=== PATIENT | male | born 1945 | race Caucasian/White ===

== ENCOUNTER → 2017-06-21 | Day surgery (SDC) | payer OTHER ==
[~2017-06-21] MED LIST: Dextrose 5%-0.45% NaCl 1,000 ML IV SCH; Midazolam 1 MG/ML 2 ML SDV IV ONE; Midazolam 1 MG/ML 2 ML SDV ONE; Sodium Chloride 0.9% 10 ML Syringe FLUSH PRN; fentaNYL 100 MCG/2 ML SDV IV ONE; fentaNYL 100 MCG/2 ML SDV ONE
--- NOTE | 2017-06-21 09:51 | OR ---
DATE: 06/21/2017 PROCEDURES: Esophagogastroduodenoscopy and multiple pinch biopsies. INSTRUMENT USED: GIF-H180 Olympus video panendoscope. PREMEDICATIONS: No oral topical anesthesia used. Fentanyl 100 mcg intravenous, Versed 2 mg intravenous. Nasal O2 cannula. The procedure was done under pulse oximetry, BP recording, and tool worker. INDICATION: The patient with longstanding heartburn and regurgitation unexplained and not responsive to medical measures, on long-term aspirin. DESCRIPTION OF PROCEDURE: Esophagogastroduodenoscopy is performed for detection of any active erosive lesions. Castillo esophagus and/or malignancy also under consideration. H. pylori status to be determined, endoscopic hemostasis therapy if needed. The scope was passed with ease. Adequate visualization of the esophagus was made from proximal to distal areas. No upper esophageal lesions identified. No distal esophageal stricture. No uphill or downhill esophageal varices. No Alessia-Prado tear. Grade D changes were noted by Switchback criteria. No esophageal polyp or tumor mass identified. Sliding hiatal hernia was noted. No proximal gastric varices noted. Gastric fundus examination by retroflexion showed no polypoid lesions. No gastric ulcer, malignant mass, or vascular ectasia identified. Duodenal bulb showed no ulcer. Visualized second part of the duodenum was unremarkable. Multiple pinch biopsies were taken from the gastric antrum and proximal body and sent for PyloriTek test for H. pylori, and if negative in an hour, the tissue is to be sent for histopathology. No bleeding was noted from any of the visualized areas at the completion of examination. IMPRESSION: 1. Sliding hiatal hernia. 2. Grade D gastroesophageal reflux disease. The patient tolerated the procedure well. [facility] /[id number]
[2017-06-21 11:12] VITALS: BP 115/61
--- NOTE | 2017-06-21 13:33 | LETTER ---
06/21/2017 Candida Joel, TAMAR [address] [place] [address] RE: AMRIK HILL : 1945 Dear Ms. Joel: Mr. Amrik Hill had esophagogastroduodenoscopy done this morning and he tolerated the procedure well. I herewith send a copy of the endoscopy note and photographs for your review. He was put on omeprazole 20 mg p.o. daily at a.m. He requires a followup EGD after 2 months of therapy for verification of total healing of ulcer and rule out Castillo esophagus and/or malignancy. His most recent colonoscopic examination here was in 2006. He does require approval from [place] to proceed with a screening colonoscopy here. Thank you. Sincerely, [facility] /[id number]
== END | disposition home or self-care (01) ==
LOC: DL.ENDO 06:48
PROVIDERS: ATTEND Internal Medicine Gastroenterology
DX: K44.9 Diaphragmatic hernia without obstruction or gangrene (principal); K21.9 Gastro-esophageal reflux disease without esophagitis; E66.9 Obesity, unspecified; I25.10 Atherosclerotic heart disease of native coronary artery without angina pectoris; E78.00 Pure hypercholesterolemia, unspecified; N40.0 Benign prostatic hyperplasia without lower urinary tract symptoms; Z87.891 Personal history of nicotine dependence
CPT/HCPCS: 43239; 87077; J2250; J3010; J7042; 88305

== ENCOUNTER 2017-07-26 05:17 | Day surgery (SDC) | payer OTHER ==
[2017-07-26] MEDS ORDERED: Midazolam 1 MG/ML 2 ML SDV IV ONE ×6 (05:18→06:47)
[2017-07-26] MEDS ORDERED: fentaNYL 100 MCG/2 ML SDV IV ONE ×3 (05:18→06:34)
[2017-07-26] MEDS ORDERED: Dextrose 5%-0.45% NaCl 1,000 ML IV SCH (06:00)
[2017-07-26] MEDS ORDERED: Sodium Chloride 0.9% 10 ML Syringe FLUSH PRN (06:00)
[2017-07-26] MEDS ORDERED: fentaNYL 100 MCG/2 ML SDV ONE (06:12)
[2017-07-26] MEDS ORDERED: Midazolam 1 MG/ML 2 ML SDV ONE (06:12)
--- NOTE | 2017-07-26 08:34 | OR ---
DATE: 07/26/2017 PROCEDURES PERFORMED: Total colonoscopy and multiple cold snare polypectomies. INSTRUMENT USED: CF-H180AL Olympus videocolonoscope. PREMEDICATIONS: Fentanyl 100 mcg intravenous and Versed 3.5 mg intravenous. Nasal 2 L O2 cannula. The procedure was done under pulse oximetry, BP recording, and security monitor. INDICATION: The patient with previous colonic polyps. Surveillance colonoscopic examination is done for detection of any polypoid lesions and removal, endoscopic hemostasis therapy if needed. DESCRIPTION OF PROCEDURE: Initial rectal exam was unremarkable. Rigid anoscopy was normal. The colonoscope was passed with ease. Numerous scattered diverticula were noted in the distal left colon along with some deformity. In the distal descending colon, a 5 mm sized benign-appearing pedunculated polyp was noted, photograph was taken, cold snare polypectomy was done, the tissue was retrieved and sent for histopathology. Another 3 mm sized benign-appearing polyp was noted in the distal descending colon, cold snare polypectomy was done, the tissue was retrieved and sent for histopathology. The scope was passed with ease up to the ileocecal area, photographs were taken of the normal-appearing cecum identified by landmarks of appendiceal orifice and double-bulged ileocecal folds. No bleeding was noted from any of the visualized areas at the commencement of the examination. No stricture. No vascular ectasia. No large isolated ulcerations seen. No evidence of diffuse inflammatory bowel disease in the form of friability, contact bleeding, or ulcerations. Probing the proximal sides of folds and flexures, using adequate distention and clearing of the stool material, withdrawal of the scope was made, cecum to rectum time over 6 minutes. No bleeding was noted from any of the visualized areas at the completion of examination. IMPRESSION: 1. Diverticulosis. 2. Multiple colonic polyps. The patient tolerated the procedure well. [facility] /[id number]
--- NOTE | 2017-07-26 08:51 | LETTER ---
07/26/2017 Candida Joel, TAMAR [address] [place] [address] RE: AMRIK HILL : 1945 Dear Ms. Joel: Mr. Amrik Hill had colonoscopic examination done today and he tolerated the procedure well. I herewith send a copy of the endoscopy note and photographs for your review. Thank you. Sincerely, [facility] /[id number]
[2017-07-26 10:45] VITALS: BP 126/68
== END 2017-07-26 09:35 | disposition home or self-care (01) ==
LOC: DL.ENDO 05:17
PROVIDERS: ATTEND Internal Medicine Gastroenterology
DX: Z12.11 Encounter for screening for malignant neoplasm of colon (principal); D12.4 Benign neoplasm of descending colon; K63.5 Polyp of colon; K57.30 Diverticulosis of large intestine without perforation or abscess without bleeding; E66.09 Other obesity due to excess calories; I25.10 Atherosclerotic heart disease of native coronary artery without angina pectoris; E78.00 Pure hypercholesterolemia, unspecified; N40.0 Benign prostatic hyperplasia without lower urinary tract symptoms; Z86.010 Personal history of colon polyps; Z87.891 Personal history of nicotine dependence
CPT/HCPCS: 45385; J2250; J3010; J7042

== ENCOUNTER 2017-08-30 05:48 | Day surgery (SDC) | payer OTHER ==
[2017-08-30] MEDS ORDERED: fentaNYL 100 MCG/2 ML SDV IV ONE ×3 (05:49→07:09)
[2017-08-30] MEDS ORDERED: Midazolam 1 MG/ML 2 ML SDV IV ONE ×3 (05:49→07:09)
[2017-08-30] MEDS ORDERED: Sodium Chloride 0.9% 10 ML Syringe FLUSH PRN (06:00)
[2017-08-30] MEDS ORDERED: fentaNYL 100 MCG/2 ML SDV ONE (06:09)
[2017-08-30] MEDS ORDERED: Midazolam 1 MG/ML 2 ML SDV ONE (06:09)
[2017-08-30] MEDS ORDERED: Dextrose 5%-0.45% NaCl 1,000 ML IV SCH (07:00)
--- NOTE | 2017-08-30 09:21 | OR ---
DATE: 08/30/2017 PROCEDURES: Esophagogastroduodenoscopy, multiple pinch biopsies, and brush biopsy for cytology. INSTRUMENT USED: GIF-H180 Olympus video panendoscope. PREMEDICATIONS: No oral topical anesthesia used. Fentanyl 100 mcg intravenous, Versed 2 mg intravenous. The procedure was done under pulse oximetry, BP recording, and administrative fellow. INDICATION: The patient with previous grade D GERD, treated with PPI. Followup esophagogastroduodenoscopy is performed for verification of total healing of esophageal ulcer and rule out malignancy. Biopsies for Castillo esophagus indicated, endoscopic hemostasis therapy if needed. DESCRIPTION OF PROCEDURE: The scope was passed with ease. Adequate visualization of the esophagus was made from proximal to distal areas. No upper esophageal lesions identified. No distal esophageal stricture. No uphill or downhill esophageal varices. No Alessia-Prado tear. Grade D erosive changes were noted by Garrard criteria. Distal esophageal benign-appearing ulcer was noted. Photographs were taken. Multiple pinch biopsies, four in number, were taken from different areas of the ulcer. [place] biopsy was also taken for cytology. No esophageal polyp or tumor mass identified. No uphill or downhill esophageal varices. Sliding hiatal hernia was noted. Four-quadrant biopsies were taken from the pink columnar epithelium at around 36 cm distal to the oral verge and sent for any histopathologic evidence of intestinal metaplasia. No proximal gastric varices noted. Gastric fundus examination by retroflexion showed no polypoid lesions. No gastric ulcer, malignant mass, or vascular ectasia identified. Duodenal bulb showed no ulcer. Visualized second part of the duodenum was unremarkable. No bleeding was noted from any of the visualized areas at the completion of examination. Photographs were taken of the distal esophagus. IMPRESSION: Sliding hiatal hernia, grade D gastroesophageal reflux disease. The patient tolerated the procedure well. [facility] /[id number]
[2017-08-30 11:33] VITALS: BP 111/74
--- NOTE | 2017-08-30 14:10 | LETTER ---
08/30/2017 Candida Joel, [address] [place] [address] RE: DEMI HILL : 1945 Dear Ms. Joel: Mr. Demi Hill had esophagogastroduodenoscopy done this morning and he tolerated the procedure well. He has been recommended to increase omeprazole to 20 mg p.o. b.i.d. Thank you. Sincerely, [facility] /[id number]
== END 2017-08-30 09:27 | disposition home or self-care (01) ==
LOC: DL.ENDO 05:48
PROVIDERS: ATTEND Internal Medicine Gastroenterology
DX: K21.9 Gastro-esophageal reflux disease without esophagitis (principal); K22.10 Ulcer of esophagus without bleeding; K44.9 Diaphragmatic hernia without obstruction or gangrene
CPT/HCPCS: 43239; J2250; J3010; J7042

== ENCOUNTER 2019-04-12 14:37 | Emergency (ER) | payer OTHER ==
--- NOTE | 2019-04-12 15:03 | EDM.PDOC ---
<Domo Jean - Last Filed: 04/12/19 15:14> ED HPI GENERAL MEDICAL PROBLEM - General Chief Complaint: Laceration Stated Complaint: CUT FINGER Time Seen by Provider: 04/12/19 14:50 Source of Information: Reports: Patient, RN, RN Notes Reviewed History Limitations: Reports: No Limitations - History of Present Illness INITIAL COMMENTS - FREE TEXT/NARRATIVE: Patient was at home changing towels out of the bathroom and was trimming some loose ends on the towels with a scissors and cut his right index finger. He held pressure on the wound for 15 minutes but could not get the bleeding to stop. He presented to the ED for wound assessment and closure. Finger laceration is roughly 1 cm long. Onset: Today Location: Reports: Upper Extremity, Right (right index finger) Quality: Reports: Ache Severity: Mild Improves with: Reports: None Worsens with: Reports: None Associated Symptoms: Reports: No Other Symptoms - Related Data Allergies Allergy/AdvReac Type Severity Reaction Status Date / Time No Known Allergies Allergy Verified 01/31/18 07:12 Home Meds: Home Meds Budesonide/Formoterol [Symbicort 160-4.5 MCG] 1 puff IN BID 06/19/15 [History] Nitroglycerin [Nitrostat] 1 tab PO ASDIRECTED 06/19/15 [History] Simvastatin [Zocor] 40 mg PO BEDTIME 06/19/15 [History] Ascorbic Acid [Vitamin C] 500 mg PO DAILY 06/18/17 [History] Aspirin/Calcium Carbonate/Mag [Aspirin Buffered] 325 mg PO DAILY 06/18/17 [ History] Calcium Carbonate [Tums Extra Strength] 750 mg PO DAILY 06/18/17 [History] Cholecalciferol (Vitamin D3) [Vitamin D3] 2,000 units PO DAILY 06/18/17 [History ] Finasteride 5 mg PO BEDTIME 06/18/17 [History] Tamsulosin [Flomax] 0.4 mg PO BEDTIME 06/18/17 [History] Tiotropium [place] [Spiriva Respimat] 1 puff INH DAILY 06/18/17 [History] Albuterol [Proventil HFA] 1 puff INH ASDIRECTED PRN 06/21/17 [History] Omeprazole 20 mg PO DAILY 07/23/17 [History] Terazosin [Hytrin] 5 mg PO BEDTIME 07/23/17 [History] Past Medical History HEENT History: Reports: Impaired Vision Other HEENT History: wears glasses. esophageal ulcer Cardiovascular History: Reports: CAD, High Cholesterol Respiratory History: Reports: COPD, Other (See Below) Other Respiratory History: Pulmonary emphysema. Hx of right pneumothorax Gastrointestinal History: Reports: Colon Polyp, GERD, Hiatal Hernia, PUD Genitourinary History: Reports: BPH Other Genitourinary History: enlagred prostates, overactive bladder Musculoskeletal History: Reports: Arthritis Neurological History: Reports: None Psychiatric History: Reports: Other (See Below) Other Psychiatric History: S/P TOBACCO HABITUATION Endocrine/Metabolic History: Reports: Obesity/BMI 30+, Vitamin D Deficiency Hematologic History: Reports: None Immunologic History: Reports: None Oncologic (Cancer) History: Reports: None Dermatologic History: Reports: None - Infectious Disease History Infectious Disease History: Reports: Chicken Pox, Measles - Past Surgical History Head Surgeries/Procedures: Reports: None HEENT Surgical History: Reports: None Cardiovascular Surgical History: Reports: Coronary Artery Stent Respiratory Surgical History: Reports: Other (See Below) Other Respiratory Surgeries/Procedures: CHEST TUBE GI Surgical History: Reports: Colonoscopy, EGD, Polypectomy Male Surgical History: Reports: None Endocrine Surgical History: Reports: None Neurological Surgical History: Reports: None Musculoskeletal Surgical History: Reports: None Oncologic Surgical History: Reports: None Dermatological Surgical History: Reports: None Social & Family History - Family History Family Medical History: Noncontributory - Caffeine Use Caffeine Use: Reports: Coffee, Soda Other Caffeine Use: AVERAGE OF 1 POT OF COFFEE DAILY - Living Situation & Occupation Living situation: Reports: , with Spouse Occupation: Retired ED ROS GENERAL - Review of Systems Review Of Systems: See Below Constitutional: Reports: No Symptoms Musculoskeletal: Reports: No Symptoms Skin: Reports: Wound (right index finger laceration) Neurological: Reports: No Symptoms Psychiatric: Reports: No Symptoms Hematologic/Lymphatic: Reports: Easy Bleeding Immunologic: Reports: No Symptoms ED EXAM, SKIN/RASH Exam: See Below Exam Limited By: No Limitations General Appearance: Alert, WD/WN, No Apparent Distress Extremities: Normal Inspection, Normal Range of Motion, Non-Tender, No Pedal Edema, Normal Capillary Refill Neurological: Alert, Oriented, CN II-XII Intact, Normal Cognition, Normal Gait, Normal Reflexes, No Motor/Sensory Deficits Psychiatric: Normal Affect, Normal Mood Skin: Warm, Dry, Normal Color. No: Erythema, Increased Warmth Location, Skin: Upper Extremity, Right (right index finger laceration) Associated features: No: Warmth, Tenderness, Swelling, Inflammation ED SKIN PROCEDURES - Laceration/Wound Repair Digit - 2nd (Index) Appearance: Superficial Distal NVT: Neuro & Vascular Intact, No Tendon Injury Anesthetic Type: Other (no aneshesia needed) Skin Prep: Saline Exploration/Debridement/Repair: Wound Margins Revised Closed with: Dermabond Lac/Wound length In cm: 1 Course - Vital Signs Last Recorded V/S: Last Vital Signs Temp 98.1 F 04/12/19 14:45 Pulse 85 04/12/19 14:45 Resp 18 04/12/19 14:45 BP 142/68 H 04/12/19 14:45 Pulse Ox 99 04/12/19 14:45 Departure - Departure Time of Disposition: 15:01 Disposition: Home, Self-Care 01 Condition: Good Clinical Impression: Broken skin - Discharge Information *PRESCRIPTION DRUG MONITORING PROGRAM REVIEWED*: Not Applicable *COPY OF PRESCRIPTION DRUG MONITORING REPORT IN PATIENT BRIAN: Not Applicable Instructions: Laceration Care, Adult, [id number] Forms: ED Department Discharge Additional Instructions: Follow-up in clinic next week or return to ED if any signs of infection appear such as redness, warmth, or if you get a fever. Let the dermabond fall off on its own and keep area around the wound clean. Sepsis Event Note - Focused Exam Vital Signs: Vital Signs Temp Pulse Resp BP Pulse Ox 04/12/19 14:45 98.1 F 85 18 142/68 H 99 Date Exam was Performed: 04/12/19 Time Exam was Performed: 15:14 <Rolo Joya - Last Filed: 04/12/19 15:21> Course - Re-Assessments/Exams Free Text/Narrative Re-Assessment/Exam: 04/12/19 15:21 I personally performed or re-performed the physical examination and medical decision making. I have verified all student documentation or findings, including history, physical exam and/or medical decision making. Sepsis Event Note - Focused Exam Date Exam was Performed: 04/12/19 Time Exam was Performed: 15:21
[2019-04-12 15:13] VITALS: BP 142/68; PULSE 85
== END 2019-04-12 15:28 | disposition home or self-care (01) ==
LOC: DL.ED 14:37
DX: S61.210A Laceration without foreign body of right index finger without damage to nail, initial encounter (principal); I25.10 Atherosclerotic heart disease of native coronary artery without angina pectoris; J43.9 Emphysema, unspecified; E78.00 Pure hypercholesterolemia, unspecified; N40.0 Benign prostatic hyperplasia without lower urinary tract symptoms; K21.9 Gastro-esophageal reflux disease without esophagitis; K27.9 Peptic ulcer, site unspecified, unspecified as acute or chronic, without hemorrhage or perforation; E66.9 Obesity, unspecified; Z79.51 Long term (current) use of inhaled steroids; Z79.899 Other long term (current) drug therapy; Z79.82 Long term (current) use of aspirin; Z95.1 Presence of aortocoronary bypass graft; Z87.891 Personal history of nicotine dependence; W27.2XXA Contact with scissors, initial encounter; Y93.89 Activity, other specified; Y92.009 Unspecified place in unspecified non-institutional (private) residence as the place of occurrence of the external cause
CPT/HCPCS: 12001; 99282-25